=== PATIENT | male | born 1985 | race African-American/Black ===

== ENCOUNTER 2023-03-30 09:42 | Outpatient (CLI) | payer OTHER ==
--- NOTE | 2023-03-30 14:58 | MRI Report ---
PROCEDURE: KNEE WO - LT INDICATIONS: PAIN IN LEFT KNEE TECHNIQUE: Noncontrast sagittal PD fast spin echo and T2 fast spin echo with fat saturation, sagittal 3-D gradie nt sequence with fat saturation; coronal T1 spin echo and PD fast spin echo with fat saturation, and axial PD fast spin echo with fat saturation through the knee. COMPARISON: None. FINDINGS: Image quality: Excellent. Menisci: There is mild T2 signal elevation at the posterior meniscocapsular junction of the posterio r horn medial meniscus. The medial and lateral menisci demonstrate otherwise normal morphology and in ternal signal. The meniscal root ligaments appear intact. Cruciate ligaments: The anterior and posterior cruciate ligaments appear intact. Medial structures: The medial collateral ligament appears intact. Visualized portions of the pes ans erinus tendons appear normal. No abnormal bursal fluid. Lateral structures: The lateral collateral ligament, long and short heads of the biceps femoris tend on appear intact. The popliteus tendon appears. Iliotibial band appears normal. Anterior structures: The quadriceps and patellar tendons appear intact. Mild T2 signal elevation wit hin the patellar tendon at the patellar insertion site. Lateral patellar subluxation is present. Late ral ventral trochlear prominence is present. No edema in the infrapatellar fat pad. Bones and cartilage: No bone marrow contusions or fractures. There is mild articular cartilage loss diffusely overlying the weightbearing aspects of the medial femoral condyle and medial tibial plateau . Joint space: There is physiologic knee joint fluid. No Jimenez's cyst. Normal appearing synovial pli are incidentally noted. IMPRESSION: 1. Low-grade meniscocapsular junction injury involving the posterior horn medial meniscus. 2. Medial compartment articular cartilage loss. 3. Findings which may predispose to lateral patellofemoral friction syndrome in the appropriate clini rubén setting. 4. Small knee joint effusion and Jimenez's cyst. 5. Mild patellar tendinitis. Reviewed by: Yamilet French MD on 03/30/2023 2:56 PM PDT Approved by: Yamilet French MD on 03/30/2023 2:56 PM PDT Station ID: [id number]
== END 2023-03-30 09:43 | disposition home or self-care (01) ==
LOC: DI 09:42
DX: S89.82XA Other specified injuries of left lower leg, initial encounter (principal); M94.262 Chondromalacia, left knee; M25.462 Effusion, left knee; M76.52 Patellar tendinitis, left knee